=== PATIENT | female | born 1990 | race Caucasian/White ===

== ENCOUNTER 2016-12-14 00:46 | Emergency (ER) | payer BC, OTHER ==
[~2016-12-14] VITALS: Ht 157.5 cm; Wt 69.4 kg
[~2016-12-14 00:46] MED LIST: ALBU1AER9 INH; MDRDP21; MTR600X PO; PRENTAB26 PO
[2016-12-14 00:53] VITALS: BP 111/73; PULSE 87; TEMP 37; O2SAT 97; Ht 157.5 cm; Wt 69.4 kg
[2016-12-14] MEDS ORDERED: PNC/500 PO (01:28)
[2016-12-14] MEDS ORDERED: ALBU18002 PO (01:29)
[2016-12-14] MEDS ORDERED: NRN100 PO (01:29)
[2016-12-14] MEDS ORDERED: PRT/20 PO (01:30)
[2016-12-14] MEDS ORDERED: NAPROSYN HOME PACK 250 MG VIAL PO ONE (01:45)
[2016-12-14] MEDS ORDERED: NAPR250T2 PO (01:46)
--- NOTE | 2016-12-14 01:46 | EMERGENCY ROOM VISIT NOTE ---
History First contact with patient: 00:55 Chief Complaint: BACK PAIN Stated Complaint: BACK PAIN, CAN'T STAND UP STRAIGHT History of Present Illness The patient is a 26 year old female who presents to the Emergency Room with complaints of low back pain which started 2 days ago. The patient states that she lifted up her grandmother 2 days ago and developed pain in the low back. The pain is located across the low back. 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 She denies any numbness or weakness of her legs. She denies any bowel or bladder incontinence. She denies any fevers. She denies any history of back problems. She rates her discomfort a 10 /10. She has taken Prasanth and Excedrin without relief. Review of Systems A complete 10 point review of systems was reviewed with the patient with pertinent positives and negatives as per history of present illness. All else were negative. Past Medical/Surgical History Medical Problems: (1) Asthma (2) Cholecystectomy (3) CHOLELITH W CHOLECYS NEC (4) Pre-eclampsia in third trimester (5) Tonsillectomy (6) [place] Teeth Removal Social History Smoking Status: Former Smoker Alcohol Use: none Drug Use: none Marital Status: Occupation Status: employed Current/Historical Medications Scheduled Methylprednisolone (Methylprednisolone Dose P), UD Naproxen (Naprosyn), 250 MG PO BID Pantoprazole (Protonix), 20 MG PO DAILY Penicillin V Potassium (Penicillin V Potassium), 500 MG PO QID Scheduled PRN Albuterol Sulfate (Proair Respiclick), 2 PUFFS PO Q4 PRN for SOB/Wheezing Gabapentin (Gabapentin), 100 MG PO BID PRN for Muscle Spasms Physical Exam Vital Signs Date Time Temp Pulse Resp B/P (MAP) Pulse Ox O2 Delivery O2 Flow Rate FiO2 12/14/16 00:53 37.0 87 16 111/73 97 Room Air Physical Exam VITALS: Vitals are noted on the nurse's note and reviewed by myself. Vital signs stable. GENERAL: This is a 26-year-old female, in no acute distress, nondiaphoretic, well-developed well-nourished. HEART: Regular rate and rhythm without murmurs gallops or rubs. LUNGS: Clear to auscultation bilaterally without wheezes, rales or rhonchi. ABDOMEN: Soft, nontender to palpation. MUSCULOSKELETAL: There is vague tenderness across the low back. Full range of motion of bilateral lower extremities. Patellar reflexes 2+. Strength 5/5 in the lower extremities. NEURO: Patient was alert and oriented to person place and time. Normal sensation to light and sharp touch. Medical Decision & Procedures ER Provider Diagnostic Interpretation: LUMBAR SPINE X-RAYS: No acute fractures or subluxations identified. Medications Administered Medications (Trade) Dose Ordered Sig/Shelley Route Start Time Stop Time Status Last Admin Dose Admin Naproxen (Naproxen 250MG Home Pack) 1 homepack UD ONCE PO 12/14/16 01:45 12/14/16 01:46 DC 12/14/16 01:45 1 HOMEPACK Medical Decision Differential diagnosis includes cauda equina syndrome, cord compression, disc herniation, muscle spasm, lumbar strain, epidural abscess, malignancy, transverse myelitis, urinary tract infection, colitis, diverticulitis, kidney stone, among others. The patient is a 26-year-old female who presents today complaining of lumbar back pain. L-spine x-rays were performed and reviewed by myself and do not show any acute fractures or subluxations. There are no signs of cauda equina syndrome or cord compression on exam. Patient was given a prescription for Naprosyn and conservative measures were discussed. She was encouraged to follow -up with her primary care provider. Medication Reconcilliation Current Medication List: was personally reviewed by me Blood Pressure Screening Patient's blood pressure: Normal blood pressure Impression Primary Impression: Low back pain Departure Information Dispostion Home / Self-Care Condition GOOD Prescriptions Naproxen (Naprosyn) 250 Mg Tab 250 MG PO BID for 7 Days, #14 TAB Prov: Apoorva Lindquist .DORETHA 12/14/16 Referrals Michelle Tyson M.D. (PCP) Patient Instructions My [facility] Additional Instructions You have been treated in the Emergency Department for Back Pain. Naproxen as prescribed. For pain control, you can use the following [id number] medicines (if >12 yo): - Regular strength (325mg/tab) Tylenol (acetaminophen) 2 tabs every 4-6 hours as needed. Do not exceed 12 tablets in a 24 hour period. Avoid taking more than 4 grams (4000 mg) of Tylenol per day. This includes any other sources of acetaminophen you may take on a regular basis. If this is an acute injury, ice can be applied to the area of pain for the first 3 days to help decrease pain and inflammation. After the first 3 days, a heating pad can be used over the area for continued soothing relief. You should schedule a follow-up appointment in 2-3 days with your Primary Care Provider for further evaluation and treatment of your back pain. Return to the Emergency Department if your current symptoms worsen despite treatment course outlined above, or if you develop any of the following symptoms : intractable pain despite aforementioned treatment course, loss of control of your bowel or bladder, numbness or tingling in your groin, or development of a fever. Problem Qualifiers Primary Impression: Low back pain Chronicity: acute Back pain laterality: bilateral Sciatica presence: without sciatica Qualified Codes: M54.5 - Low back pain
--- NOTE | 2016-12-14 06:33 | DIAGNOSTIC IMAGING REPORT ---
L-SPINE MIN 4 VIEWS ROUTINE CLINICAL HISTORY: low back pain COMPARISON STUDY: No previous studies for comparison. FINDINGS: There is no pathologic bowel dilatation. There are surgical clips within the right upper quadrant consistent with a prior cholecystectomy. There are 5 lumbar type vertebral bodies present. No fractures or subluxations are visualized. No destructive lesions are evident. IMPRESSION: No fractures or subluxations identified. Electronically signed by: Crispin Li M.D. 12/14/2016 6:31 AM Dictated Date/Time: 12/14/2016 6:31 AM
== END 2016-12-14 01:50 | disposition home or self-care (01) ==
LOC: C.EDB 00:47 → C.EDA 01:50
DX: M54.5 Low back pain (principal); J45.909 Unspecified asthma, uncomplicated; Z90.49 Acquired absence of other specified parts of digestive tract; Z87.891 Personal history of nicotine dependence; Z79.899 Other long term (current) drug therapy

== ENCOUNTER 2017-05-31 17:56 | Emergency (ER) | payer OTHER ==
[~2017-05-31] VITALS: Ht 157.5 cm; Wt 65.6 kg
[~2017-05-31 17:56] MED LIST changes: +ALBU18002 PO; -ALBU1AER9 INH; -MTR600X PO; +NRN100 PO; +PNC/500 PO; -PRENTAB26 PO; +PRT/20 PO
[2017-05-31 18:38] VITALS: Ht 157.5 cm; Wt 65.6 kg
[2017-05-31] MEDS ORDERED: HYDROCODONE/ACETAMIN 5/325MG TAB PO STA (18:47)
[2017-05-31] MEDS ORDERED: AMOXICILLIN 250 MG CAP PO ONE (18:58)
--- NOTE | 2017-05-31 19:27 | EMERGENCY ROOM VISIT NOTE ---
ED Visit Note First contact with patient: 18:39 CHIEF COMPLAINT: Toothache HISTORY OF PRESENT ILLNESS: This 27-year-old female presents to ER with chief complaint of pain where she had a tooth extracted on Sunday. Patient states she has had increased pain in the socket since yesterday. The patient went to [facility] and was referred to the ER. The patient did not try to contact the dentist. The patient has been taken ibuprofen for pain. She initially had some hydrocodone but she ran out of the hydrocodone. The patient denies any fever. She states the pain radiates down into her jaw. The patient denies any facial pain or swelling. She denies any palpable lumps or any drainage from the site. REVIEW OF SYSTEMS: 6 system review was performed and was negative unless stated otherwise in history of present illness. PMH: The patient is healthy; asthma, cholecystectomy, tonsillectomy, adenoids removed, wisdom teeth removed, history of C. difficile SOCIAL HISTORY: Patient lives with her boyfriend and daughter. The patient denies any tobacco or alcohol use. PHYSICAL EXAM: Vital Signs: Reviewed reviewed Nurse's notes. GENERAL: 27-year- old female appears in no acute distress. MENTAL Status: Alert and oriented 3. MOUTH: The #30 tooth has been extracted. It appears that there is a blood clot within the socket. No surrounding erythema or edema noted. No palpable abscess. FACE: No facial swelling noted. NECK: Supple, no lymphadenopathy noted EMERGENCY COURSE: The patient was given amoxicillin 500 mg while in the emergency room. She was also given Olanta 5/325 mg 2 tablets p.o. for pain. The patient was reevaluated and was feeling better. The patient was given a Olanta home pack. The patient was discharged home in stable condition with her mother driving. DIAGNOSIS: Toothache DISCHARGE INSTRUCTIONS & TREATMENT: Ibuprofen 600 mg every 6 hours with food for pain. Take Olanta as needed for more severe pain. Take amoxicillin as prescribed. Call your surgeon tomorrow for an appointment as soon as possible for definitive care. Problem List Medical Problems: (1) Asthma Status: Chronic (2) Cholecystectomy Status: Resolved (3) CHOLELITH W CHOLECYS NEC Status: Resolved (4) Tonsillectomy Status: Resolved (5) [place] Teeth Removal Status: Resolved Current/Historical Medications Scheduled Methylprednisolone (Methylprednisolone Dose P), UD Pantoprazole (Protonix), 20 MG PO DAILY Penicillin V Potassium (Penicillin V Potassium), 500 MG PO QID Scheduled PRN Albuterol Sulfate (Proair Respiclick), 2 PUFFS PO Q4 PRN for SOB/Wheezing Gabapentin (Gabapentin), 100 MG PO BID PRN for Muscle Spasms Allergies Coded Allergies: BEE STING (Verified Allergy, Unknown, unknown, 12/14/16) Vital Signs Date Time Temp Pulse Resp B/P (MAP) Pulse Ox O2 Delivery O2 Flow Rate FiO2 05/31/17 18:38 90 20 138/93 98 Room Air 05/31/17 18:36 89 16 138/93 98 Room Air Medications Administered Medications (Trade) Dose Ordered Sig/Shelley Route Start Time Stop Time Status Last Admin Dose Admin Acetaminophen/ Hydrocodone Bitart ([place] 5/325 Tab) 2 tab NOW STAT PO 05/31/17 18:47 05/31/17 18:50 DC 05/31/17 19:00 2 TAB Amoxicillin (Amoxil Cap) 500 mg STK-MED ONCE PO 05/31/17 18:58 05/31/17 18:59 DC 05/31/17 19:00 500 MG Departure Information Referrals Michelle Tyson M.D. (PCP) Patient Instructions My [facility]
[2017-05-31] MEDS ORDERED: AMOX500C3 PO (19:28)
[2017-05-31] MEDS ORDERED: NORCO 5/325MG HOME PACK PO ONE (19:30)
[2017-05-31 19:36] VITALS: BP 131/81; PULSE 86; O2SAT 95
[2017-05-31] MEDS ORDERED: AMOXICILLIN 500 MG CAP PO SCH (21:00)
== END 2017-05-31 19:37 | disposition home or self-care (01) ==
LOC: C.EDB 17:57 → C.EDD 19:37
DX: K08.89 Other specified disorders of teeth and supporting structures (principal); Z79.899 Other long term (current) drug therapy; Z91.030 Bee allergy status

== ENCOUNTER 2017-07-08 12:40 | Emergency (ER) | payer OTHER ==
[~2017-07-08] VITALS: Ht 157.5 cm; Wt 60.0 kg
[2017-07-08 12:45] VITALS: Ht 157.5 cm; Wt 60.0 kg
[2017-07-08] MEDS ORDERED: VANC5CAP PO (13:10)
[2017-07-08] MEDS ORDERED: ESCI1TAB9 PO (13:10)
[2017-07-08] MEDS ORDERED: ONDA4TAB46 PO (13:10)
--- NOTE | 2017-07-08 13:23 | EMERGENCY ROOM VISIT NOTE ---
History Report prepared by Kim: Deep Martinez Under the Supervision of: Dr. Eddie Baeza D.O. First contact with patient: 12:51 Chief Complaint: FALL Stated Complaint: FALL, CAN'T WALK, TO BE SEEN W/DAUGHTER History of Present Illness The patient is a 27 year old female who presents to the Emergency Room with complaints of constant pain to her left knee and left elbow beginning this morning. The patient states she slipped and fell on her porch this morning. She reports it is difficult walk and movement increases her symptoms. The patient denies any other symptoms. Source of History: patient Onset: this morning Position: elbow (left), knee (left) Timing: constant Modifying Factors (Worsening): movement Note: Denies any other symptoms. Review of Systems See HPI for pertinent positives & negatives. A total of 10 systems reviewed and were otherwise negative. Past Medical & Surgical Medical Problems: (1) Asthma (2) Cholecystectomy (3) CHOLELITH W CHOLECYS NEC (4) Pre-eclampsia in third trimester (5) Tonsillectomy (6) [place] Teeth Removal Family History Diabetes mellitus Gallbladder disease Heart disease Hypertension Social History Smoking Status: Never Smoker Alcohol Use: none Drug Use: none Marital Status: Housing Status: lives with family Occupation Status: employed Current/Historical Medications Scheduled Escitalopram Oxalate (Lexapro), 10 MG PO DAILY Pantoprazole (Protonix), 20 MG PO DAILY Vancomycin Hcl (Vancomycin), 125 MG PO Q6H Scheduled PRN Albuterol Sulfate (Proair Respiclick), 2 PUFFS PO Q4 PRN for SOB/Wheezing Gabapentin (Gabapentin), 100 MG PO BID PRN for Muscle Spasms Ondansetron Hcl (Zofran), 4 MG PO Q6 PRN for Nausea Allergies Coded Allergies: Acetaminophen (Unverified Allergy, Intermediate, VOMITTING, 07/08/17) Codeine (Unverified Allergy, Intermediate, VOMITTING, 07/08/17) BEE STING (Verified Allergy, Unknown, unknown, 12/14/16) Metronidazole (Unverified Adverse Reaction, Severe, VOMITTING, 07/08/17) Tramadol (Unverified Adverse Reaction, Intermediate, VOMITTING, 07/08/17) Physical Exam Vital Signs Date Time Temp Pulse Resp B/P (MAP) Pulse Ox O2 Delivery O2 Flow Rate FiO2 07/08/17 12:45 36.9 95 18 133/88 98 Room Air Physical Exam CONSTITUTIONAL/VITAL SIGNS: Reviewed / noted above. GENERAL: Non-toxic in appearance. INTEGUMENTARY: Warm, dry, and [place]. HEAD: Normocephalic. EYES: without scleral icterus or trauma. ENT/OROPHARYNX: clear and moist. LYMPHADENOPATHY/NECK: Is supple without lymphadenopathy or meningismus. RESPIRATORY: Lungs clear and equal. CARDIOVASCULAR: Regular rate and rhythm. GI/ABDOMEN: Soft and nontender. No organomegaly or pulsatile mass. No rebound or guarding. Normal bowel sounds. EXTREMITIES: Warm and well perfused. Abrasion to the left knee and left elbow. BACK: No CVA tenderness. NEUROLOGICAL: Intact without focal deficits. PSYCHIATRIC: normal affect. MUSCULOSKELETAL: Normally developed with good muscle tone. Medical Decision & Procedures ED Course 1258: Previous medical records were reviewed. The patient was evaluated in room A04A. A complete history and physical examination was performed. I discussed the physical exam findings and treatment plan with the patient. She verbalized complete understanding of the treatment plan. She will be discharged home. Medical Decision Differential includes close head injury, intracranial bleed, facial trauma, cervical spine trauma, chest and thoracic trauma, abdominal and intra-abdominal trauma, spine neurologic trauma, extremity trauma. This is a 27-year-old female who presents to the ED with a chief complaint of a fall on her porch this morning as well as some abrasions to her left knee and left elbow. Her exam reveals an abrasion to the left knee area anteriorly and an abrasion to the left elbow. Full range of motion. Minimal discomfort. No obvious palpable or visible bony abnormalities. The patient was told the results. She is felt to be stable for discharge. Medication Reconcilliation Current Medication List: was personally reviewed by me Blood Pressure Screening Patient's blood pressure: Normal blood pressure Blood pressure disposition: Did not require urgent referral Impression Primary Impression: Abrasion Additional Impression: Fall Scribe Attestation The scribe's documentation has been prepared under my direction and personally reviewed by me in its entirety. I confirm that the note above accurately reflects all work, treatment, procedures, and medical decision making performed by me. Departure Information Dispostion Home / Self-Care Referrals Michelle Tyson M.D. (PCP) Forms HOME CARE DOCUMENTATION FORM, IMPORTANT VISIT INFORMATION Patient Instructions ED [place], My [facility] Additional Instructions Watch for signs of infection. Take Tylenol as needed for pain. Problem Qualifiers
[2017-07-08 13:35] VITALS: BP 133/88; PULSE 95; TEMP 36.9; O2SAT 98
== END 2017-07-08 13:15 | disposition home or self-care (01) ==
LOC: C.EDB 12:41 → C.EDA 13:15
DX: S80.212A Abrasion, left knee, initial encounter (principal); S50.312A Abrasion of left elbow, initial encounter; W01.0XXA Fall on same level from slipping, tripping and stumbling without subsequent striking against object, initial encounter; J45.909 Unspecified asthma, uncomplicated; Z88.6 Allergy status to analgesic agent; Z88.1 Allergy status to other antibiotic agents; Z91.030 Bee allergy status; Z83.3 Family history of diabetes mellitus; Z82.49 Family history of ischemic heart disease and other diseases of the circulatory system; Z83.79 Family history of other diseases of the digestive system

== ENCOUNTER 2020-06-17 07:17 | Inpatient (IN) ==
[2020-06-17] MEDS ORDERED: OXYTOCIN 30 UNITS/500 ML BAG IV PRN ×3 (09:34→23:30)
--- NOTE | 2020-06-17 09:56 | Obstetrical Progress Note ---
Date of Service June 17, 2020 Assessment & Plan Admission and Anticipated Discharge Date Admission Date: June 17, 2020 Subjective Admit Note 30 F P2022 at 4o.4 weeks admitted for post-dates . GBS is negative. Covid testing is negative. FHT Cat 1 without contractions. Cervix 2-3/50/-2/vertex/intact/anterior/firm. EFW 7.5 lbs. Will start Oxytocin for induction of labor. Results & Data ([facility]) Vital Signs (Past 12 Hours) Vital Signs Temp Pulse Resp BP 06/17/20 09:51 108 H 166/102 H 06/17/20 09:36 106 H 139/84 06/17/20 09:24 105 H 160/104 H 06/17/20 09:22 115 H 149/105 H 06/17/20 09:06 99 H 131/77 06/17/20 08:51 116 H 151/101 H 06/17/20 08:36 114 H 131/92 06/17/20 08:35 105 H 154/94 H 06/17/20 08:22 122 H 141/99 H 06/17/20 08:05 102 H 153/104 H 06/17/20 07:51 37.4 C 20 06/17/20 07:42 89 168/98 H
[2020-06-17] MEDS: LACTATED RINGER'S 1,000 ML IV PRN ×2 (10:01→17:35)
[2020-06-17 10:13] LABS: Hematocrit (blood only) 34.6 % (37-47); Hemoglobin 11.5 g/dL (12.0-16.0); Mean Corpuscular Hemoglobin 25.8 pg (25-34); Mean Corpuscular Hgb Conc 33.2 g/dL (32-36); Mean Corpuscular Volume 77.6 fL (80-100); Mean Platelet Volume 10.3 fL (7.4-10.4); Platelet Count 188 K/uL (130-400); RDW Coefficient of Variation 15.2 % (11.5-14.5); Red Blood Count 4.46 M/uL (4.2-5.4); White Blood Count 9.99 K/uL (4.8-10.8)
[2020-06-17] MEDS: LABETALOL HCL 100 MG TAB PO SCH ×2 (12:28→23:12)
[2020-06-17 12:48] LABS: Albumin Level 2.8 gm/dl (3.4-5.0); BUN Creatinine Ratio 13.2 (10-20); Bilirubin Direct 0.2 mg/dl (0-0.2); Calcium 8.7 mg/dl (8.5-10.1); Creatinine Clr Calc Pharmacy 140.7 ml/min; Est GFR (Non-African American) 123.4; Potassium 3.7 mmol/L (3.5-5.1)
[2020-06-17 12:51] LABS: Albumin Globulin Ratio 0.8 (0.9-2); Bilirubin,Total 0.4 mg/dl (0.2-1); Globulin 3.6 gm/dl (2.5-4.0); Total Protein 6.4 gm/dl (6.4-8.2)
[2020-06-17] MEDS ORDERED: ONDANSETRON INJ 2 MG/ML 2 ML VIAL IV PRN ×2 (14:17→19:05)
--- NOTE | 2020-06-17 17:53 | Obstetrical Progress Note ---
Date of Service June 17, 2020 Assessment & Plan Admission and Anticipated Discharge Date Admission Date: June 17, 2020 Physical Exam Genitourinary: Manual OB Exam: + cervical dilation 4 cm and 5 cm, + cervical effacement 70%, + station -1 and + amniotic fluid clear OB Exam Monitor Tracing: + external FHT monitor used, + external uterine monitor used, + categor y I and + normal FHT variability AROM with Amni-hook clear fluid Results [facility] Data [facility]) Vital Signs (Past 12 Hours) Vital Signs Temp Pulse Resp BP 06/17/20 17:29 81 169/105 H 06/17/20 16:10 86 142/98 H 06/17/20 15:15 88 141/93 H 06/17/20 14:26 37.0 C 20 06/17/20 14:08 86 140/94 06/17/20 12:53 92 H 157/84 H 06/17/20 12:06 93 H 153/101 H 06/17/20 11:10 91 H 145/93 H 06/17/20 10:37 99 H 136/84 06/17/20 10:21 37.0 C 88 20 138/86 06/17/20 10:07 96 H 137/78 06/17/20 10:03 102 H 162/114 H 06/17/20 09:51 108 H 166/102 H 06/17/20 09:36 106 H 139/84 06/17/20 09:24 105 H 160/104 H 06/17/20 09:22 115 H 149/105 H 06/17/20 09:06 99 H 131/77 06/17/20 08:51 116 H 151/101 H 06/17/20 08:36 114 H 131/92 06/17/20 08:35 105 H 154/94 H 06/17/20 08:22 122 H 141/99 H 06/17/20 08:05 102 H 153/104 H 06/17/20 07:51 37.4 C 20 06/17/20 07:42 89 168/98 H
[2020-06-17] MEDS ORDERED: SODIUM CHLORIDE 0.9% INJ 10 ML VIAL ONE (18:19)
[2020-06-17] MEDS ORDERED: fentaNYL citrate 100 MCG/2 ML VIAL ONE ×2 (18:19→19:12)
[2020-06-17] MEDS ORDERED: BUPIVACAINE 0.25% 30 ML VIAL ONE (18:19)
[2020-06-17] MEDS ORDERED: ePHEDrine sulfate 50 MG/ML AMP ONE (18:19)
[2020-06-17] MEDS ORDERED: fentaNYL 2MCG/ML ROPIVACAINE 1.25MG/ML 100 ML BAG EPI ONE (18:20)
--- NOTE | 2020-06-17 18:38 | Anesthesiology Consultation ---
Date of Service June 17, 2020 Assessment & Plan (1) Encounter for pre-operative examination: Chart Review Chart Review: Acceptable Risk for Labor Epidural History Height/Weight Height: 5 ft 2 in Weight: 87.09 kg Allergies Allergy/AdvReac Type Severity Reaction Status Date / Time butalbital [From Fioricet] Allergy Hives Verified 06/17/20 09:01 caffeine [From Fioricet] Allergy Hives Verified 06/17/20 09:01 codeine Allergy Hives Verified 06/17/20 09:01 metronidazole [From Flagyl] Allergy Vomiting Verified 06/17/20 08:38 oxycodone Allergy Hives Verified 06/17/20 09:01 tramadol Allergy Hives Verified 06/17/20 08:39 Medications Home Medications Medication Instructions Recorded Confirmed Last Taken aspirin [Baby Aspirin] 81 mg PO DAILY 06/17/20 06/17/20 06/17/20 07:00 prenat.vits,millie,vzr-xxvd-upucw 1 tab PO DAILY 06/17/20 06/17/20 06/16/20 20:00 [ Vitamin] Active Medications Generic Name Dose Route Start Last Admin Trade Name Freq PRN Reason Stop Dose Admin Lactated Ringer's 1,000 mls @ 125 mls/hr 06/17/20 09:34 06/17/20 18:15 Lr IV 06/19/20 09:33 999 mls/hr .Q8H PRN Infusion L&D Protocol Protocol Oxytocin 30 units in 500 mls @ 14 mls/hr 06/17/20 09:52 06/17/20 17:40 Pitocin IV 06/19/20 09:51 0.84 units/hr .Q24H PRN 14 mls/hr Labor Induction/Augmentation Titration Protocol 0.84 UNITS/HR Labetalol HCl 100 mg 06/17/20 12:30 06/17/20 12:28 Labetalol Hcl 100 Mg Tab PO 07/17/20 12:29 100 mg BID CRISTAL Administration Ondansetron HCl 4 mg 06/17/20 14:17 06/17/20 14:25 Ondansetron Inj 2 Mg/Ml 2 Ml Vial IV 07/17/20 14:16 4 mg Q4H PRN Administration Nausea Past Medical History Medical History ADHD Anxiety and depression Asthma Congenital heart anomaly mitral valve regurgitation Medical marijuana use PTSD (post-traumatic stress disorder) Past Surgical History Surgical History H/O wisdom tooth extraction History of laparoscopic cholecystectomy History of tonsillectomy and adenoidectomy Social History Smoking Status: Never smoker Hx Alcohol Use: No Hx Substance Use: Yes substance use type: marijuana Substance Use Type Other:: medical marijuana card Last Used Substance Other:: 05/20/20 Physical Exam Vital Signs Last Vital Signs Temp 37.0 C 06/17/20 18:29 Pulse 95 H 06/17/20 18:33 Resp 20 06/17/20 18:29 BP 189/117 H 06/17/20 18:28 Pulse Ox 98 06/17/20 18:33 Testing Laboratory Results 06/17/20 09:57 06/17/20 12:17
[2020-06-17] MEDS ORDERED: ePHEDrine sulfate 50 MG/ML AMP IV PRN (19:05)
[2020-06-17] MEDS ORDERED: NALOXONE HCL 1 MG in SODIUM CHLORIDE 0.9% 1000ML 1,000 ML IV PRN (19:05)
[2020-06-17] MEDS ORDERED: NALOXONE HCL 0.4 MG/1 ML VIAL/CARP IV PRN (19:05)
[2020-06-17] MEDS ORDERED: fentaNYL 2MCG/ML ROPIVACAINE 1.25MG/ML 100 ML BAG EPI PRN (19:05)
--- NOTE | 2020-06-17 20:05 | Obstetrical Progress Note ---
Date of Service June 17, 2020 Assessment & Plan Admission and Anticipated Discharge Date Admission Date: June 17, 2020 Physical Exam Genitourinary: Manual OB Exam: + cervical dilation 6 cm, + cervical effacement 100%, + station 0 and + amniotic fluid clear OB Exam Monitor Tracing: + external FHT monitor used, + external uterine monitor used, + category I and + normal FHT variability Results & Data ([facility]) Vital Signs (Past 12 Hours) Vital Signs Temp Pulse Resp BP Pulse Ox 06/17/20 19:58 90 97 06/17/20 19:53 83 152/97 H 97 06/17/20 19:48 87 97 06/17/20 19:43 87 97 06/17/20 19:39 85 140/90 06/17/20 19:38 78 97 06/17/20 19:33 79 97 06/17/20 19:30 18 06/17/20 19:28 84 97 06/17/20 19:23 84 98 06/17/20 19:22 80 150/94 H 06/17/20 19:20 18 06/17/20 19:18 92 H 97 06/17/20 19:16 94 H 165/99 H 06/17/20 19:15 18 06/17/20 19:13 87 98 06/17/20 19:11 88 158/94 H 06/17/20 19:10 36.8 C 18 06/17/20 19:09 89 144/95 H 06/17/20 19:08 89 98 06/17/20 19:06 86 156/104 H 06/17/20 19:05 97 H 18 154/103 H 06/17/20 19:03 86 163/102 H 98 06/17/20 19:01 93 H 168/92 H 06/17/20 18:58 90 97 06/17/20 18:57 98 H 164/93 H 06/17/20 18:53 113 H 98 06/17/20 18:52 112 H 190/124 H 06/17/20 18:51 114 H 192/118 H 06/17/20 18:48 100 H 98 06/17/20 18:43 100 H 96 06/17/20 18:38 90 97 06/17/20 18:33 95 H 98 06/17/20 18:29 37.0 C 20 06/17/20 18:28 94 H 189/117 H 98 06/17/20 18:10 88 142/103 H 06/17/20 17:29 81 169/105 H 06/17/20 16:10 86 142/98 H 06/17/20 15:15 88 141/93 H 06/17/20 14:26 37.0 C 20 06/17/20 14:08 86 140/94 06/17/20 12:53 92 H 157/84 H 06/17/20 12:06 93 H 153/101 H 06/17/20 11:10 91 H 145/93 H 06/17/20 10:37 99 H 136/84 06/17/20 10:21 37.0 C 88 20 138/86 06/17/20 10:07 96 H 137/78 06/17/20 10:03 102 H 162/114 H 06/17/20 09:51 108 H 166/102 H 06/17/20 09:36 106 H 139/84 06/17/20 09:24 105 H 160/104 H 06/17/20 09:22 115 H 149/105 H 06/17/20 09:06 99 H 131/77 06/17/20 08:51 116 H 151/101 H 06/17/20 08:36 114 H 131/92 06/17/20 08:35 105 H 154/94 H 06/17/20 08:22 122 H 141/99 H 06/17/20 08:05 102 H 153/104 H
[2020-06-17] MEDS ORDERED: ERYTHROMYCIN OP OINT 1 GM PKT ONE (21:48)
--- NOTE | 2020-06-17 22:19 | Delivery Summary ---
Vaginal Delivery Summary Date of Service June 17, 2020 Vaginal Delivery Summary Delivery Note live male NIKKI over intact perineum with delayed cord clamping and Apgars 8/9 weight pending. Cord blood obtained followed by spontaneous delivery of intact placenta. No tears. EBL 100 ml. Final sponge and instrument count are correct. Mom and baby stable.
[2020-06-17] MEDS ORDERED: DIPHTHERIA/TETANUS/PERTUSSIS 0.5 ML SYR/VIAL IM ONE (23:30)
[2020-06-17] MEDS ORDERED: ACETAMINOPHEN 325 MG TAB PO PRN (23:30)
[2020-06-17] MEDS ORDERED: HYDROCORTISONE ACETATE 25 MG SUPP PR PRN (23:30)
[2020-06-17] MEDS ORDERED: bisacodyL 10 MG SUPP PR PRN (23:30)
[2020-06-17] MEDS ORDERED: SUPERCREAM 0.870% 15 GM JAR EXT PRN (23:30)
[2020-06-17] MEDS ORDERED: BENZOCAINE 20% AER SPR 82.5 GM CAN EXT PRN (23:30)
[2020-06-18] MEDS: IBUPROFEN 600 MG TAB PO PRN ×4 (00:41→21:54)
[2020-06-18 06:33] LABS: Hematocrit (blood only) 30.7 % (37-47); Hemoglobin 10.3 g/dL (12.0-16.0); Mean Corpuscular Hemoglobin 25.9 pg (25-34); Mean Corpuscular Hgb Conc 33.6 g/dL (32-36); Mean Corpuscular Volume 77.3 fL (80-100); Platelet Count 199 K/uL (130-400); RDW Coefficient of Variation 15.5 % (11.5-14.5); RDW Standard Deviation 43.9 fL (36.4-46.3); Red Blood Count 3.97 M/uL (4.2-5.4); White Blood Count 14.24 K/uL (4.8-10.8)
--- NOTE | 2020-06-18 07:27 | Anesthesia Procedure Note ---
Date of Service June 18, 2020 Anesthesia Post Epidural Note Vital Signs Vital Signs: Temp Pulse Resp BP Pulse Ox 37.0 C 102 H 18 147/105 H 95 06/18/20 03:45 06/18/20 03:45 06/18/20 03:45 06/18/20 03:45 06/17/20 22:48 Notes Mental Status: alert / awake / arousable Nausea / Vomiting: adequately controlled Pain: adequately controlled Airway Patency, RR, SpO2: stable & adequate BP & HR: stable & adequate Hydration State: stable & adequate Neuraxial Anesthesia: was administered and sensory block is resolving Anesthetic Complications: no major complications apparent and Pt Satisfied with anesthetic care Epidural: Removed without complications and With tip intact
[2020-06-18] MEDS: PRENATAL VITAMIN 1 TAB PO SCH (08:25)
[2020-06-18] MEDS: DOCUSATE SODIUM 100 MG CAP PO SCH ×2 (08:25→20:36)
[2020-06-18] MEDS: LABETALOL HCL 100 MG TAB PO SCH ×2 (08:25→20:35)
[2020-06-18] MEDS ORDERED: NON-FORMULARY MEDICATION (Prenat.Vits,Cal,Min-Iron-Folic Tablet) PO SCH (09:00)
[2020-06-18] MEDS ORDERED: LIDOCAINE HCL 1% 20 ML VIAL ONE (09:17)
[2020-06-18] MEDS ORDERED: miSOPROStoL 200 MCG TAB ONE ×2 (09:30→17:27)
[2020-06-18] MEDS ORDERED: miSOPROStoL 200 MCG TAB PR ONE ×2 (09:36→18:00)
--- NOTE | 2020-06-18 09:36 | Progress Note ---
Date of Service June 18, 2020 Assessment & Plan Admission and Anticipated Discharge Date Admission Date: June 17, 2020 Subjective Pt is s/p VD Has moderate bleeding HTN on labetelol Pelvic exam No laceration in vagina POC from cervix removed Cytotec 600mcg given rectally will start Pitocin pelvic sono ordered Results & Data ([facility]) Vital Signs (Past 12 Hours) Vital Signs Temp Pulse Pulse Pulse Resp BP BP 06/18/20 08:32 90 142/99 H 06/18/20 07:16 36.7 C 92 H 20 144/100 H 06/18/20 03:45 37.0 C 102 H 18 147/105 H 06/18/20 01:10 37.3 C 101 H 18 130/85 06/18/20 00:25 105 H 18 160/95 H 06/18/20 00:10 104 H 168/93 H 06/17/20 23:55 108 H 18 150/82 H 06/17/20 23:40 108 H 164/87 H 06/17/20 23:25 110 H 177/99 H 06/17/20 23:07 104 H 18 171/100 H 06/17/20 22:53 99 H 18 165/81 H 06/17/20 22:48 102 H 06/17/20 22:43 101 H 06/17/20 22:42 104 H 06/17/20 22:38 107 H 18 169/96 H 06/17/20 22:33 108 H 06/17/20 22:28 109 H 06/17/20 22:23 110 H 06/17/20 22:21 107 H 18 159/93 H 06/17/20 22:18 104 H 06/17/20 22:13 102 H 06/17/20 22:08 109 H 132/78 06/17/20 22:03 129 H 18 06/17/20 21:58 137 H 06/17/20 21:53 104 H 149/97 H 06/17/20 21:48 104 H 06/17/20 21:43 98 H 06/17/20 21:39 100 H 136/84 06/17/20 21:38 101 H Pulse Ox 06/18/20 08:32 06/18/20 07:16 97 06/18/20 03:45 06/18/20 01:10 06/18/20 00:25 06/18/20 00:10 06/17/20 23:55 06/17/20 23:40 06/17/20 23:25 06/17/20 23:07 06/17/20 22:53 06/17/20 22:48 95 06/17/20 22:43 95 06/17/20 22:42 94 06/17/20 22:38 95 06/17/20 22:33 95 06/17/20 22:28 95 06/17/20 22:23 96 06/17/20 22:21 06/17/20 22:18 95 06/17/20 22:13 97 06/17/20 22:08 96 06/17/20 22:03 95 06/17/20 21:58 97 06/17/20 21:53 97 06/17/20 21:48 97 06/17/20 21:43 95 06/17/20 21:39 94 06/17/20 21:38 97
[2020-06-18] MEDS ORDERED: OXYTOCIN 20 UNITS in LACTATED RINGER'S 1,000 ML IV SCH ×2 (09:45→19:30)
[2020-06-18] MEDS ORDERED: ACETAMINOPHEN W/CODEINE #3 1 TAB PO PRN (09:46)
--- NOTE | 2020-06-18 11:34 | History & Physical Bridge Note ---
Date of Service June 18, 2020 History & Physical Bridge Note I have examined the patient, reviewed the History & Physical and in the interval since the performance of the History & Physical I have noted the following changes of clinical significance: no changes noted
--- NOTE | 2020-06-18 11:35 | Progress Note ---
Date of Service June 18, 2020 Assessment & Plan Admission and Anticipated Discharge Date Admission Date: June 17, 2020 Subjective s/p pelvic sono showed retained placenta pt is scheduled for D&E pt consented risk and benefits of surgery discussed Results & Data ([facility]) Vital Signs (Past 12 Hours) Vital Signs Temp Pulse Pulse Pulse Resp BP BP 06/18/20 08:32 90 142/99 H 06/18/20 07:16 36.7 C 92 H 20 144/100 H 06/18/20 03:45 37.0 C 102 H 18 147/105 H 06/18/20 01:10 37.3 C 101 H 18 130/85 06/18/20 00:25 105 H 18 160/95 H 06/18/20 00:10 104 H 168/93 H 06/17/20 23:55 108 H 18 150/82 H 06/17/20 23:40 108 H 164/87 H Pulse Ox 06/18/20 08:32 06/18/20 07:16 97 06/18/20 03:45 06/18/20 01:10 06/18/20 00:25 06/18/20 00:10 06/17/20 23:55 06/17/20 23:40
--- NOTE | 2020-06-18 11:46 | Ultrasound Report ---
US pelvic complete HISTORY: 30 years-old Female VD less than 24 hrs ago. please evaluate for POC acute vaginal bleeding with possible retained products of conception COMPARISON: None TECHNIQUE: Multiple real-time sonographic images of the deep pelvic structures were obtained transabd ominally assessing grayscale appearance and color flow FINDINGS: Enlarged heterogeneous post gravid appearance of the uterus measures 23 x 11 x 12 cm. Endometrium is thickened and heterogeneous measuring up to 4.6 cm. Within the lower uterine segment hypoechoic heter ogeneous material measures up to 9 x 4 x 6 cm without color flow. Nonvisualization of the ovaries. No significant free pelvic fluid. IMPRESSION: 1. Enlarged heterogeneous post gravid appearance of the uterus with suggested blood products within t he lower uterine segment. 2. No definite sonographic evidence of retained products of conception. 3. Nonvisualization of the ovaries. ACT 112: Negative or not required by law. The above report was generated using voice recognition software. It may contain grammatical, syntax o r spelling errors. Electronically signed by: Gabriel Lockwood M.D. 06/18/2020 11:45 AM
[2020-06-18] MEDS ORDERED: cefOXitin 2,000 MG in DEXTROSE 5% 50 ML IV ONE (12:30)
[2020-06-18] MEDS ORDERED: CITRIC ACID/SODIUM CITRATE 15 ML UDC PO ONE (12:30)
[2020-06-18] MEDS ORDERED: LACTATED RINGER'S 1,000 ML IV SCH (12:44)
[2020-06-18] MEDS ORDERED: METHYLERGONOVINE MALEATE 0.2 MG/ML AMP ONE (17:27)
[2020-06-18] MEDS ORDERED: DEXAMETHASONE SOD INJ 4 MG/ML VIAL ONE (17:40)
[2020-06-18] MEDS ORDERED: PROPOFOL IV EMULSION 10 MG/ML 20 ML VIAL IV ONE (17:40)
[2020-06-18] MEDS ORDERED: fentaNYL citrate 100 MCG/2 ML VIAL ONE (17:40)
[2020-06-18] MEDS ORDERED: LIDOCAINE HCL 2% 2 ML VIAL/AMP(20MG/ML) INFIL ONE (17:40)
[2020-06-18] MEDS ORDERED: ONDANSETRON INJ 2 MG/ML 2 ML VIAL ONE (17:40)
[2020-06-18] MEDS ORDERED: MIDAZOLAM HCL 1 MG/ML 2ML VIAL ONE (17:40)
[2020-06-18] MEDS ORDERED: SUCCINYLCHOLINE 100MG/5ML SYR IV ONE (17:47)
[2020-06-18] MEDS ORDERED: LARYING-O-JET KIT (LTA) ONE (17:47)
[2020-06-18] MEDS ORDERED: SCOPOLAMINE 1 MG TDSY TD ONE (17:51)
--- NOTE | 2020-06-18 18:15 | History and Physical Report ---
DATE OF ADMISSION: 06/17/2020 HISTORY OF PRESENT ILLNESS: The patient is a 30-year-old G3, who had spontaneous vaginal delivery on 06/17/2020. The patient continued to have bleeding and this morning an ultrasound done showed she had retained products of conception. Decision is therefore made to take the patient to the operating room and perform a D and E. PAST MEDICAL HISTORY: The patient has a history of anxiety, asthma and PTSD. PAST SURGICAL HISTORY: The patient has a history of dental procedures and cholecystectomy as well as tonsillectomy. SOCIAL HISTORY: The patient denies drug or alcohol use. FAMILY HISTORY: Noncontributory. PHYSICAL EXAMINATION: GENERAL: Well-developed, well-nourished white female in no acute distress. HEART: S1, S2, regular rhythm and rate. LUNGS: Clear to auscultation bilaterally. ABDOMEN: Slightly tender, nondistended. PELVIC: The patient has moderate bleeding. VITAL SIGNS: Blood pressure is 149/101, pulse is 97, temperature 36.6. ASSESSMENT AND PLAN: Status post vaginal delivery, retained products of conception. The patient has agreed to undergo dilation and evacuation with suction. Consent is signed. Risks and benefits of surgery are discussed.
[2020-06-18] MEDS ORDERED: OXYTOCIN 10 UNITS/ML VIAL ONE (18:16)
[2020-06-18] MEDS ORDERED: ceFAZolin 2000MG 2,000 MG/15 ML SYR IV ONE (18:24)
[2020-06-18] MEDS ORDERED: ATROPINE SULFATE 0.1 MG/ML 10ML SYR IV PRN (18:38)
[2020-06-18] MEDS ORDERED: ePHEDrine sulfate 50 MG/ML AMP IV PRN (18:38)
[2020-06-18] MEDS ORDERED: fentaNYL citrate 100 MCG/2 ML VIAL IV PRN (18:38)
[2020-06-18] MEDS ORDERED: ONDANSETRON INJ 2 MG/ML 2 ML VIAL IV PRN (18:38)
--- NOTE | 2020-06-18 18:38 | Anesthesiology Consultation ---
Date of Service June 18, 2020 Assessment & Plan (1) Encounter for pre-operative examination: Chart Review Chart Review: Acceptable Risk for Surgery and Patient NOT seen in Pre Admission Testing Consults Requested none ASA ASA3 Proposed Anesthesia Anesthesia Type: General Risk / Benefits Reviewed With: PT / POA / Parent / Guardian, Accepts Plan and In formed Consent Obtained History Surgery Operation Date: 06/18/20 07:00 Proposed Procedures p Dilation and Evacuation with US Guidance - Cedric Hernandez MD Height/Weight Height: 5 ft 2 in Weight: 87.09 kg Allergies Allergy/AdvReac Type Severity Reaction Status Date / Time butalbital [From Fioricet] Allergy Hives Verified 06/17/20 09:01 caffeine [From Fioricet] Allergy Hives Verified 06/17/20 09:01 codeine Allergy Hives Verified 06/17/20 09:01 metronidazole [From Flagyl] Allergy Vomiting Verified 06/17/20 08:38 oxycodone Allergy Hives Verified 06/17/20 09:01 tramadol Allergy Hives Verified 06/17/20 08:39 Medications Home Medications Medication Instructions Recorded Confirmed Last Taken aspirin [Baby Aspirin] 81 mg PO DAILY 06/17/20 06/17/20 06/17/20 07:00 prenat.vits,millie,tfe-xukw-unauf 1 tab PO DAILY 06/17/20 06/17/20 06/16/20 20:00 [ Vitamin] Active Medications Generic Name Dose Route Start Last Admin Trade Name Freq PRN Reason Stop Dose Admin Acetaminophen 650 mg 06/17/20 23:30 06/18/20 09:56 Acetaminophen 325 Mg Tab PO 07/17/20 23:29 650 mg Q6H PRN Administration Pain/PEREZ/Fever Benzocaine 1 appln 06/17/20 23:30 06/18/20 01:15 Benzocaine 20% Aer Spr 82.5 Gm Can EXT 07/17/20 23:29 82.5 appln PRN PRN Administration Perineal Discomfort Docusate Sodium 100 mg 06/18/20 08:00 06/18/20 08:25 Docusate Sodium 100 Mg Cap PO 07/18/20 07:59 100 mg DAILY@, CRISTAL Administration Lactated Ringer's 1,000 mls @ 125 mls/hr 06/17/20 09:34 06/17/20 22:08 Lr IV 06/19/20 09:33 Infused .Q8H PRN Infusion L&D Protocol Protocol Oxytocin 30 units in 500 mls @ 999 mls/hr 06/17/20 09:52 06/17/20 22:45 Pitocin IV 06/19/20 09:51 Infused .Q31M PRN Titration Labor Induction/Augmentation Protocol 59.94 UNITS/HR Oxytocin 20 units/ Lactated 1,002 mls @ 125 mls/hr 06/18/20 09:45 06/18/20 10:18 Ringer's IV 07/18/20 09:44 125 mls/hr .Q8H1M CRISTAL Administration Ibuprofen 600 mg 06/17/20 23:30 06/18/20 09:56 Ibuprofen 600 Mg Tab PO 07/17/20 23:29 600 mg Q4H PRN Administration Pain/PEREZ/Cramping/Fever Labetalol HCl 100 mg 06/17/20 12:30 06/18/20 08:25 Labetalol Hcl 100 Mg Tab PO 07/17/20 12:29 100 mg BID CRISTAL Administration Prenat Multivit/Lamp Tester And Inspector/Iron/Folic Ac 1 tab 06/18/20 08:00 06/18/20 08:25 Vitamin 1 Tab PO 07/18/20 07:59 1 tab DAILY@08 CRISTAL Administration NPO Date Last Intake of Fluids: 06/18/20 Time Last Intake of Fluids: 09:30 Last Intake of Fluids Comment: Sips Date Last Intake of Solids: 06/18/20 Time Last Intake of Solids: 08:30 Past Medical History Medical History ADHD Anxiety and depression Asthma Congenital heart anomaly mitral valve regurgitation Medical marijuana use PTSD (post-traumatic stress disorder) Exercise / Class Metabolic Activity II 4-5 Yardwork/Stairs/Walk up hill Past Surgical History Surgical History H/O wisdom tooth extraction History of laparoscopic cholecystectomy History of tonsillectomy and adenoidectomy Past Anesthesia History No Hx of Anesthesia Complications and No Family Hx of Anesthesia Complications History of PONV No Hx of PONV and No Hx of Motion Sickness Social History Smoking Status: Never smoker Hx Alcohol Use: No Hx Substance Use: Yes substance use type: marijuana Substance Use Type Other:: medical marijuana card Last Used Substance Other:: 05/20/20 Physical Exam Vital Signs Last Vital Signs Temp 36.6 C 06/18/20 16:53 Pulse 97 H 06/18/20 16:53 Resp 18 06/18/20 16:53 BP 149/101 H 06/18/20 16:53 Pulse Ox 97 06/18/20 16:53 ENMT Mouth: no dentition abnormality Thyromental Distance: > or= 3.5 Finger Breadths Mallampati Class: II Neck normal visual inspection Respiratory normal respiratory effort Auscultation: lungs clear to auscultation bilaterally Cardiovascular Rate/Rhythm: regular rate and regular rhythm Psychiatric Orientation: alert Testing Laboratory Results 06/18/20 06:15 06/17/20 12:17
--- NOTE | 2020-06-18 19:08 | Anesthesiology Progress Note ---
Date of Service June 18, 2020 Anesthesia Post Procedure Vital Signs Vital Signs: Temp Pulse Pulse Pulse Pulse Resp BP 06/18/20 16:53 36.6 C 97 H 18 06/18/20 16:07 36.8 C 92 H 18 06/18/20 11:19 37.3 C 95 H 18 06/18/20 08:32 90 06/18/20 07:16 36.7 C 92 H 20 06/18/20 03:45 37.0 C 102 H 18 06/18/20 01:10 37.3 C 101 H 18 06/18/20 00:25 105 H 18 160/95 H 06/18/20 00:10 104 H 168/93 H 06/17/20 23:55 108 H 18 150/82 H 06/17/20 23:40 108 H 164/87 H 06/17/20 23:25 110 H 177/99 H 06/17/20 23:07 104 H 18 171/100 H 06/17/20 22:53 99 H 18 165/81 H 06/17/20 22:48 102 H 06/17/20 22:43 101 H 06/17/20 22:42 104 H 06/17/20 22:38 107 H 18 169/96 H 06/17/20 22:33 108 H 06/17/20 22:28 109 H 06/17/20 22:23 110 H 06/17/20 22:21 107 H 18 159/93 H 06/17/20 22:18 104 H 06/17/20 22:13 102 H 06/17/20 22:08 109 H 132/78 06/17/20 22:03 129 H 18 06/17/20 21:58 137 H 06/17/20 21:53 104 H 149/97 H 06/17/20 21:48 104 H 06/17/20 21:43 98 H 06/17/20 21:39 100 H 136/84 06/17/20 21:38 101 H 06/17/20 21:34 96 H 06/17/20 21:33 98 H 06/17/20 21:30 18 06/17/20 21:28 100 H 06/17/20 21:23 97 H 147/92 H 06/17/20 21:18 101 H 06/17/20 21:13 99 H 06/17/20 21:10 95 H 03/04/21 21:08 37.0 C 92 H 139/91 06/17/20 21:03 102 H 06/17/20 21:00 18 06/17/20 20:58 100 H 06/17/20 20:55 92 H 06/17/20 20:53 93 H 119/84 06/17/20 20:49 95 H 06/17/20 20:48 95 H 06/17/20 20:44 95 H 06/17/20 20:43 97 H 06/17/20 20:38 88 135/83 06/17/20 20:33 99 H 06/17/20 20:30 18 06/17/20 20:28 94 H 06/17/20 20:25 88 06/17/20 20:23 92 H 139/92 06/17/20 20:18 99 H 06/17/20 20:13 94 H 06/17/20 20:09 81 138/88 06/17/20 20:08 83 06/17/20 20:03 92 H 06/17/20 20:00 18 06/17/20 19:58 90 06/17/20 19:53 83 152/97 H 06/17/20 19:48 87 06/17/20 19:43 87 06/17/20 19:39 85 140/90 06/17/20 19:38 78 06/17/20 19:33 79 06/17/20 19:30 18 06/17/20 19:28 84 06/17/20 19:23 84 06/17/20 19:22 80 150/94 H 06/17/20 19:20 18 06/17/20 19:18 92 H 06/17/20 19:16 94 H 165/99 H 06/17/20 19:15 18 06/17/20 19:13 87 06/17/20 19:11 88 158/94 H 06/17/20 19:10 36.8 C 18 06/17/20 19:09 89 144/95 H BP Pulse Ox 06/18/20 16:53 149/101 H 97 06/18/20 16:07 143/91 H 98 06/18/20 11:19 148/108 H 97 06/18/20 08:32 142/99 H 06/18/20 07:16 144/100 H 97 06/18/20 03:45 147/105 H 06/18/20 01:10 130/85 06/18/20 00:25 06/18/20 00:10 06/17/20 23:55 06/17/20 23:40 06/17/20 23:25 06/17/20 23:07 06/17/20 22:53 06/17/20 22:48 95 06/17/20 22:43 95 06/17/20 22:42 94 06/17/20 22:38 95 06/17/20 22:33 95 06/17/20 22:28 95 06/17/20 22:23 96 06/17/20 22:21 06/17/20 22:18 95 06/17/20 22:13 97 06/17/20 22:08 96 06/17/20 22:03 95 06/17/20 21:58 97 06/17/20 21:53 97 06/17/20 21:48 97 06/17/20 21:43 95 06/17/20 21:39 94 06/17/20 21:38 97 06/17/20 21:34 94 06/17/20 21:33 94 06/17/20 21:30 06/17/20 21:28 97 06/17/20 21:23 95 06/17/20 21:18 96 06/17/20 21:13 96 06/17/20 21:10 94 06/17/20 21:08 95 06/17/20 21:03 97 06/17/20 21:00 06/17/20 20:58 95 06/17/20 20:55 94 06/17/20 20:53 94 06/17/20 20:49 93 06/17/20 20:48 94 06/17/20 20:44 94 06/17/20 20:43 96 06/17/20 20:38 96 06/17/20 20:33 95 06/17/20 20:30 06/17/20 20:28 96 06/17/20 20:25 94 06/17/20 20:23 96 06/17/20 20:18 97 06/17/20 20:13 98 06/17/20 20:09 06/17/20 20:08 95 06/17/20 20:03 97 06/17/20 20:00 06/17/20 19:58 97 06/17/20 19:53 97 06/17/20 19:48 97 06/17/20 19:43 97 06/17/20 19:39 06/17/20 19:38 97 06/17/20 19:33 97 06/17/20 19:30 06/17/20 19:28 97 06/17/20 19:23 98 06/17/20 19:22 06/17/20 19:20 06/17/20 19:18 97 06/17/20 19:16 06/17/20 19:15 06/17/20 19:13 98 06/17/20 19:11 06/17/20 19:10 06/17/20 19:09 Transfer of Care Handoff Completed per policy Notes Mental Status: alert / awake / arousable Patient Amnestic to Procedure: Yes Nausea / Vomiting: adequately controlled Pain: adequately controlled Airway Patency, RR, SpO2: stable & adequate BP & HR: stable & adequate Hydration State: stable & adequate Anesthetic Complications: no major complications apparent
[2020-06-18] MEDS ORDERED: KETOROLAC 30 MG/ML VIAL IV PRN (19:16)
[2020-06-18] MEDS ORDERED: IBUPROFEN 600 MG TAB PO PRN (19:16)
--- NOTE | 2020-06-18 19:21 | Post Operative Brief Note ---
Immediate Post Op Note v1 Date of Surgery June 18, 2020 Pre & Post Diagnosis Operation Date: 06/18/20 07:00 Pre-Op Diagnosis: Retained products of conception Post-Op Diagnosis: Retained products of conception I identified the patient and participated in the time-out.: Yes Procedure Operation Date: 06/18/20 07:00 Actual Procedures p Dilation and evacuation with suction under ultrasound guidance - Cedric Hernandez MD Surgeon Cedric Hernandez MD Motor Room Controller none Estimated Blood Loss 100 Findings Consistent with Post-Op Diagnosis Drains Chu Catheter
[2020-06-18] MEDS ORDERED: bisacodyL 5 MG TABEC PO SCH (20:00)
--- NOTE | 2020-06-18 20:10 | Ultrasound Report ---
INTRAOPERATIVE ULTRASOUND CLINICAL HISTORY: Ultrasound guidance for retained products of conception. COMPARISON STUDY: Pelvic ultrasound dated 06/18/2020. FINDINGS: The ssis etl developer provided intraoperative assistance for Dr. Hernandez in performing a dilatation and excision procedure. 5 spot images are presented. Initial images show complex retained material w ithin the endometrial canal. On the final 2 images this has been removed. No residual tissue is clear ly identified. The post gravid uterus is enlarged and heterogeneous. IMPRESSION: Intraoperative ultrasound images as above. Electronically signed by: Daryl Pacheco M.D. 06/18/2020 8:08 PM
--- NOTE | 2020-06-18 21:05 | Operative Report (OR) ---
DATE OF OPERATION: 06/18/2020 INDICATION FOR PROCEDURE: This is a 30-year-old status post vaginal delivery on 06/17/2020. The patient was experiencing moderate amount of bleeding since delivery. This morning, pelvic exam was done and retained products of conception was suspected. Ultrasound was performed which confirmed that. This evening, the patient underwent a dilation and evacuation of uterus under ultrasound guidance. PREOPERATIVE DIAGNOSES: 1. Status post vaginal delivery. 2. Retained products of conception. POSTOPERATIVE DIAGNOSES: 1. Status post vaginal delivery. 2. Retained products of conception. PROCEDURE: 1. Examination under anesthesia. 2. Dilation and evacuation of uterus under ultrasound guidance. SURGEON: Cedric Hernandez MD MODERATE NEEDS TEACHER: None. ESTIMATED BLOOD LOSS: 100 mL. URINE OUTPUT: 200 mL clear urine at the beginning of the procedure. INTRAVENOUS FLUIDS: 1700 mL. FINDINGS: Moderate amount of products found in the uterus. Entire procedure performed under ultrasound guidance. COMPLICATIONS: None. PATHOLOGY: Products of conception. DISPOSITION: Stable to recovery room. DESCRIPTION OF PROCEDURE: The patient was taken to the operating room where she was prepped and draped in normal sterile fashion in dorsal lithotomy position. Time out was called. Bladder was catheterized and 200 mL of urine was obtained. Two weighted speculum was placed in the vagina. Single tooth tenaculum was used to grab the cervix. Cervix was dilated in series. A size 14 suction attached to a suction device placed in the uterus. This was all done under ultrasound guidance. Suction was performed several times until no more products could be seen in the uterus on ultrasound. Suction was removed. A banjo curette was introduced into the uterine cavity once again under ultrasound guidance. Suction of all 4 quadrants performed until a relatively gritty texture was obtained. Once again, ultrasound confirms no more products are seen in the uterus. There was good hemostasis. All instruments were removed from the uterus including suction and sharp curette. The patient was given Pitocin, Methergine and Cytotec. There was good hemostasis. All instruments were removed from the uterus and vagina and accounted for x2 including suction device. The patient was sent to recovery in stable condition. I attest to the content of the Intraoperative Record and any orders documented therein. Any exception s are noted below.
[2020-06-19 06:40] LABS: Hematocrit (blood only) 29.2 % (37-47); Hemoglobin 9.7 g/dL (12.0-16.0)
[2020-06-19] MEDS: LABETALOL HCL 100 MG TAB PO SCH (07:57)
[2020-06-19] MEDS: DOCUSATE SODIUM 100 MG CAP PO SCH (07:57)
[2020-06-19] MEDS: PRENATAL VITAMIN 1 TAB PO SCH (07:57)
--- NOTE | 2020-06-19 08:27 | Obstetrical Progress Note ---
Date of Service June 19, 2020 Assessment & Plan (1) Normal course: Pt doing well s/p VD day #2 D&E for retained placenta (2) Post-operative state: pt doing well hemoglobin is 9.7 pt feeling much better d/c home on iron Subjective Ambulation: ambulating normally Voiding: no voiding problems Passing Gas:: Yes Diet Tolerance:: regular diet Lochia:: Small Feeding Type:: breast feeding Review of Systems All systems reviewed & are unremarkable except as noted in HPI & below Physical Exam Constitutional WD/WN, vitals as above well developed and well nourished Eyes PERRL, conjunctivae normal, anicteric sclerae Neck trachea midline, no thyromegaly Respiratory normal respiratory effort, lungs clear to auscultation Auscultation: no crackles, no rales and no wheezes Cardiovascular RRR, no murmur, no edema Gastrointestinal (Abdomen) normal bowel sounds, soft, nontender, no hepatosplenomegaly Uterus is below umbilicus Musculoskeletal no cyanosis or clubbing, extremities motor strength 5/5 Skin no rashes, warm and dry Neurologic patellar DTR's 2+ bilat, sensation intact Psychiatric A+Ox3, euthymic affect Genitourinary normal external appearance Results & Data ([facility]) Vital Signs (Past 12 Hours) Vital Signs Temp Pulse Pulse Resp BP Pulse Ox 06/19/20 07:36 36.8 C 97 H 20 134/82 06/19/20 03:30 36.8 C 89 18 131/93 96 06/18/20 23:20 36.8 C 100 H 20 129/84 98 06/18/20 22:10 36.8 C 104 H 20 133/88 96 06/18/20 21:10 37.3 C 97 H 20 150/106 H 97 06/18/20 20:40 36.7 C 93 H 18 141/102 H 97
[2020-06-19] MEDS ORDERED: FERROUS SULFATE 325 MG TAB PO SCH (08:30)
--- NOTE | 2020-07-05 23:06 | Discharge Summary (DS) ---
HISTORY OF PRESENT ILLNESS: This is a 30-year-old G4, P2, due date 06/13/2020 making her 40 weeks and 5 days on 06/17/2020. The patient presented to labor and delivery with ruptured membranes and went on to deliver a live infant on 06/17/2020. Details of the delivery is in the obstetric and pediatric notes respectively. The patient did well postop; however, on 06/19/2020 she continued to have significant bleeding. She underwent D and E for removal of retained placenta. Details of surgery is in the surgical note as well. She was discharged home in stable condition on 06/19/2020. PAST MEDICAL HISTORY: History of attention deficit hyperactivity disorder, history of asthma, migraines and posttraumatic stress disorder. PAST SURGICAL HISTORY: The patient had dental surgery in the past, cholecystectomy and laparoscopy as well as adenoids and tonsils removed. SOCIAL HISTORY: The patient denies tobacco, drug or alcohol use. FAMILY HISTORY: Noncontributory. ALLERGIES: THE PATIENT IS ALLERGIC TO CODEINE, METRONIDAZOLE. REVIEW OF SYSTEMS: Negative. VITAL SIGNS: On 06/19/2020 is as follows: Blood pressure 134/82, pulse is 97, temperature 36.8. REVIEW OF SYSTEMS: Negative except as dictated in the HPI. LABORATORY DATA: At time of discharge, hemoglobin was 9.7, hematocrit was 29.2. PHYSICAL EXAMINATION: HEART: S1, S2, regular rhythm and rate. LUNGS: Clear to auscultation bilaterally. ABDOMEN: Nontender, nondistended. Uterus firm. EXTREMITIES: No cyanosis, clubbing or edema. CONDITION ON DISCHARGE: Stable. OPERATION: Vaginal delivery, hemorrhage, D and E under ultrasound guidance. PLAN ON DISCHARGE: The patient is discharged home with instructions regarding activity, diet and followup appointment.
== END 2020-06-19 15:45 | disposition home or self-care (01) | DRG 797 ==
LOC: 4S1 07:17 → MERGE 07:17 → 4S2 06-18 01:13

== ENCOUNTER 2022-03-24 12:25 | Inpatient (IN) ==
[2022-03-24] MEDS ORDERED: OXYTOCIN 30 UNITS/500 ML BAG IV PRN ×2 (13:07→21:27)
[2022-03-24] MEDS ORDERED: LIDOCAINE 1% LOCAL 20 ML VIAL INFIL PRN (13:07)
--- NOTE | 2022-03-24 13:14 | History & Physical Report ---
Date of Service March 24, 2022 Assessment & Plan (1) 39 weeks gestation of : Plan: Blood pressure in clinic earlier today was 142/94, when she presented to labor and delivery, was 131/92. Not meet criteria for gestational hypertension or preeclampsia at this time as not been 4 hours since blood pressures have been taken. However due to patient being 39 weeks gestation, and the risk of severe preeclampsia or eclampsia, will move towards delivery Admit, routine labs, PIH labs, epidural if patient request Cytotec 25 mcg sublingual every 4 hours Oxytocin later for augmentation, and plan to AROM Anticipate spontaneous vaginal delivery (2) Elevated BP without diagnosis of hypertension: Plan: PIH labs pending History of Present Illness Chief Complaint: Elevated BP in clinic Primary Care Provider: Michelle Tyson MD Patient is a 32-year-old -0-1-3 at 39 weeks and 1 dated dated by 12 week US ([place]-outside scanned records) who was seen in clinic today for elevated blood pressures and 2+ protein. She presents to labor and delivery denying headache, blurry vision, right upper quadrant or epigastric pain. Otherwise feeling well. Denies contractions, leaking of fluid or vaginal bleeding. Notes good movement. Initiate care at [facility] practice in [place] and then transfer care at 29 weeks. [place] by 12-week ultrasound is March 30, 2022. is complicated by maternal congenital heart anomaly. Per MFM:"Echo 2006-trivial aortic regurgitation, no MVP Echo 2009-trace aortic regurg due to trileaflet aortic valve; trace physiologic MR Saw cardiology 02/2020: The echocardiogram was normal, with normal left and right ventricular chamber size and systolic function LVEF 65 to 69%. There is no significant valvular heart disease. Specifically there is no significant mitral valve regurgitation. The aortic valve anatomy was normal with no aortic valve stenosis or regurgitation. I counseled the patient that I do not think she has any structural heart disease that would affect her or her health overall. She can return to see cardiology on an as-needed basis in the future should future concerns arise." History of preeclampsia in her previous , received magnesium sulfate and discharged on labetalol. He also had an elevated 1 hour glucose tolerance test, but did not complete 3-hour oral glucose tolerance testing. She has a history of medical marijuana use in , last time used approximately 4 to 5 months ago to help with nausea. Denies other drug use. History of moderate persistent asthma, inhaler as needed. History of depression previously on Zoloft 50 mg Allergies Allergy/AdvReac Type Severity Reaction Status Date / Time bee venom protein (honey bee) Allergy Unknown unknown Verified 03/24/22 13:10 butalbital [From Fioricet] Allergy Hives Verified 03/24/22 13:10 metronidazole AdvReac Severe VOMITTING Verified 03/24/22 13:10 tramadol AdvReac Intermediate VOMITTING Verified 03/24/22 13:10 Home Medications Medication Instructions Recorded Confirmed Type Albuterol Sulfate (Proair 2 puff PO Q4 PRN SOB/Wheezing ##0 12/14/16 03/24/22 History Respiclick) Pantoprazole (Protonix) 20 mg PO DAILY #30 tabs 12/14/16 History ONDANSETRON HCL (ZOFRAN) 4 mg PO Q6 PRN Nausea #0 tabs 07/08/17 03/24/22 History fluticasone propionate 50 2 spray intranasal DAILY PRN 05/06/18 03/24/22 History mcg/actuation nasal Allergic Reaction spray,suspension (Flonase Allergy Relief) aspirin 81 mg chewable tablet 81 mg PO DAILY 06/17/20 06/17/20 History prenat.vits,millie,udn-glbc-pbjmy 1 tab PO DAILY 06/17/20 03/24/22 History famotidine 20 mg tablet (Pepcid) 20 mg PO DAILY 03/24/22 03/24/22 History Patient History Medical History (Updated 03/24/22 @ 13:33 by Anju Pemberton MD, PhD) ADHD Anxiety and depression no meds Asthma inhalers used as needed Congenital heart anomaly mitral valve regurgitation Depression GERD (gastroesophageal reflux disease) History of Clostridium difficile colitis History of Clostridium difficile infection 2016 Influenza A dx 02/2022 Medical marijuana use PTSD- childhood trauma; last used approx 5-6 months Migraine no meds used in over approx 1 year PTSD (post-traumatic stress disorder) childhood trauma Surgical History H/O wisdom tooth extraction History of cholecystectomy History of esophagogastroduodenoscopy (EGD) History of laparoscopic cholecystectomy History of tonsillectomy and adenoidectomy History of tonsillectomy and adenoidectomy Family History Mother Anxiety Depression Other Breast cancer Denies family history of Colon cancer Ovarian cancer Prostate cancer Myocardial infarction Social History Smoking Status: Former smoker Tobacco Type: E-cigarettes / Vaping Second Hand Exposure: No; Hx Alcohol Use: No Hx Substance Use: Yes Prescribed Medications: Marijuana Prescribed Medications Comment: medical marijuana card Last Used Substance Other:: August 2021 Substance Use Type Other:: medical marijuana card Preferred Language: Mohawk Communication Ability: Effective Visual Impairment: No Limitations Hearing Ability: Normal Beliefs That Will Affect Care: None marital status: marital status details: Mick Fitzgerald Current Living Situation: Family Current Living Situation Comment: and 2 children current occupational status: unemployed current occupation: [employer] Feels Safe at Home: Yes Safety Concerns: Feels Safe At This Time Dental Care, Regularly: Yes Physical Activity Frequency: 3-4 Times per Week Assistive Devices: None OB History x3 History of retained products of conception after last vaginal delivery, underwent suction dilation and curettage under ultrasound guidance RN INTAKE History See records Review of Systems All systems reviewed & are unremarkable except as noted in HPI & below Physical Exam Constitutional: WD/WN, vitals as above Respiratory: normal respiratory effort, lungs clear to auscultation Cardiovascular: RRR, no murmur, no edema Gastrointestinal (Abdomen): normal bowel sounds, soft, nontender, no hepatosplenomegaly Genitourinary: FHT: Baseline 1 25-1 30, moderate variability, no accelerations, no decelerations, category 1 tracing Tocometer: Irritability Cervix: 1-2/20/-3, cephalic Chucky's 3600 g Results & Data ([facility]) Vital Signs (Past 12 Hours) Vital Signs Pulse BP 03/24/22 12:50 101 H 131/92
[2022-03-24 13:44] LABS: Hematocrit (blood only) 35.3 % (34.1-44.9); Hemoglobin 11.9 g/dl (12.0-16.0); Mean Corpuscular Hemoglobin 26.4 pg (25.0-34.0); Mean Corpuscular Hgb Conc 33.7 g/dL (32.0-36.0); Mean Corpuscular Volume 78.3 fL (80.0-100.0); Mean Platelet Volume 10.2 fL (9.4-12.3); Platelet Count 206 K/uL (130-400); RDW Coefficient of Variation 14.6 % (11.5-14.5); RDW Standard Deviation 41.2 fL (36.4-46.3); Red Blood Count 4.51 M/uL (3.93-5.22); White Blood Count 11.84 K/ul (4.8-10.8)
[2022-03-24 14:04] LABS: Alanine Aminotransferase 6 U/L (7-52); Albumin Globulin Ratio 1.3 (0.9-2); Albumin Level 3.6 gm/dl (3.4-5.0); Alkaline Phosphatase 125 U/L (34-104); Anion Gap 8 (3-11); Aspartate Aminotransferase 13 U/L (13-39); BUN Creatinine Ratio 12.2 (10-20); Bilirubin Direct 0.1 mg/dl (0-0.2); Bilirubin,Total 0.7 mg/dl (0.2-1.0); Blood Urea Nitrogen 5 mg/dl (6-23); Calcium 8.3 mg/dl (8.5-10.1); Carbon Dioxide 22 mmol/L (21-32); Chloride 106 mmol/L (98-107); Creatinine Clr Calc Pharmacy 194.6 ml/min; Est GFR (African American) > 150.0 ml/min; Est GFR (Non-African American) 138.6 ml/min; Globulin 2.7 gm/dl (2.5-4.0); Glucose 77 mg/dl (70-99(Fasting)); Potassium 3.8 mmol/L (3.5-5.1); Sodium 136 mmol/L (136-145); Total Protein 6.3 gm/dl (6.0-8.3)
[2022-03-24 14:23] LABS: Creatinine Urine Random 35.9 mg/dl; Protein Creatinine Ratio Urine 0.3 (0-0.2); Total Protein Urine Random 9.6 mg/dl (0-11.9)
[2022-03-24 14:58] LABS: Amphetamines+Metham, Urine Neg (Neg); Barbiturates, Urine Neg (Neg); Benzodiazepine, Urine Neg (Neg); Cocaine, Urine Neg (Neg); MDMA (Ecstacy), Urine Neg (Neg); Methadone, Urine Neg (Neg); Opiate, Urine Neg (Neg); Phencyclidine, Urine Neg (Neg)
[2022-03-24] MEDS: miSOPROStoL 25 MCG TAB SL SCH ×2 (15:19→20:21)
--- NOTE | 2022-03-24 19:31 | Labor Progress Brief Note ---
Date of Service March 24, 2022 Subjective Doing well, contractions more painful. Assessment & Plan (1) Pre-eclampsia affecting , antepartum: Plan: Meets criteria from elevated blood pressures at least 4 hours apart with protein creatinine ratio of 0.3 Received 1 dose of Cytotec 25 mcg sublingual, lee too much to give another dose at this time Epidural if patient request, start oxytocin for augmentation later if necessary, plan to AROM at next check Anticipate spontaneous vaginal delivery (2) 39 weeks gestation of : (3) Elevated BP without diagnosis of hypertension: Plan: PIH labs pending Admission and Anticipated Discharge Date Admission Date: March 24, 2022 Physical Exam Constitutional: WD/WN, vitals as above Respiratory: normal respiratory effort, lungs clear to auscultation Cardiovascular: RRR, no murmur, no edema Gastrointestinal (Abdomen): normal bowel sounds, soft, nontender, no hepatosplenomegaly Genitourinary: heart tracing: Baseline 135, moderate variability, positive accelerations no decelerations, category 1 tracing Tocometer contractions every 2 minutes Cervix: 3/50/-2 AROM was attempted but was unable to complete at this time Results & Data ([facility]) Vital Signs (Past 12 Hours) Vital Signs Temp Pulse Resp BP 03/24/22 15:18 37.1 C 18 03/24/22 13:34 37.2 C 18 03/24/22 19:07 18 03/24/22 19:07 37.2 C 18 03/24/22 19:08 104 H 131/90 03/24/22 17:43 101 H 20 135/86 03/24/22 15:17 99 H 121/79 03/24/22 13:15 88 144/93 H 03/24/22 12:50 101 H 131/92
[2022-03-24] MEDS: LACTATED RINGER'S 1,000 ML IV PRN (22:06)
[2022-03-25] MEDS: miSOPROStoL 25 MCG TAB SL SCH ×2 (02:22→05:31)
[2022-03-25] MEDS ORDERED: ONDANSETRON INJ 2 MG/ML 2 ML VIAL IV PRN ×2 (02:25→03:09)
[2022-03-25] MEDS ORDERED: ePHEDrine sulfate 50 MG/ML AMP ONE (02:48)
[2022-03-25] MEDS ORDERED: SODIUM CHLORIDE 0.9% INJ 10 ML VIAL ONE (02:49)
[2022-03-25] MEDS ORDERED: fentaNYL citrate 100 MCG/2 ML VIAL ONE (02:49)
[2022-03-25] MEDS ORDERED: BUPIVACAINE 0.25% 30 ML VIAL ONE (02:49)
[2022-03-25] MEDS ORDERED: fentaNYL 2MCG/ML ROPIVACAINE 1.25MG/ML 100 ML BAG EPI ONE (02:49)
[2022-03-25] MEDS ORDERED: LIDOCAINE 2%/EPINEPHRINE 1:200,000 20 ML SDV ONE (02:49)
--- NOTE | 2022-03-25 03:08 | Anesthesiology Consultation ---
Date of Service March 25, 2022 Assessment & Plan ASA ASA3 Proposed Anesthesia Anesthesia Type: Labor Epidural Risk / Benefits Reviewed With: PT / POA / Parent / Guardian, Accepts Plan and Informed Consent Obtained History Height/Weight Height: 5 ft 2 in Weight: 78.471 kg Allergies Allergy/AdvReac Type Severity Reaction Status Date / Time bee venom protein (honey bee) Allergy Unknown unknown Verified 03/24/22 13:10 butalbital [From Fioricet] Allergy Hives Verified 03/24/22 13:10 metronidazole AdvReac Severe VOMITTING Verified 03/24/22 13:10 tramadol AdvReac Intermediate VOMITTING Verified 03/24/22 13:10 Medications Home Medications Medication Instructions Recorded Confirmed Last Taken Albuterol Sulfate (Proair 2 puff PO Q4 PRN SOB/Wheezing ##0 12/14/16 03/24/22 Unknown Respiclick) Pantoprazole (Protonix) 20 mg PO DAILY #30 tabs 12/14/16 Unknown ONDANSETRON HCL (ZOFRAN) 4 mg PO Q6 PRN Nausea #0 tabs 07/08/17 03/24/22 03/24/22 08:00 fluticasone propionate 50 2 spray intranasal DAILY PRN 05/06/18 03/24/22 Unknown mcg/actuation nasal Allergic Reaction spray,suspension (Flonase Allergy Relief) aspirin 81 mg chewable tablet 81 mg PO DAILY 06/17/20 06/17/20 03/24/22 08:30 prenat.vits,millie,xrq-smit-rakup 1 tab PO DAILY 06/17/20 03/24/22 03/24/22 08:00 famotidine 20 mg tablet (Pepcid) 20 mg PO DAILY 03/24/22 03/24/22 03/23/22 21:00 Active Medications Generic Name Dose Route Start Last Admin Trade Name Freq PRN Reason Stop Dose Admin Lactated Ringer's 1,000 mls @ 125 mls/hr 03/24/22 13:07 03/25/22 02:46 Lr IV 03/26/22 13:06 999 mls/hr .Q8H PRN Infusion L&D Protocol Protocol Oxytocin 30 units in 500 mls @ 2 mls/hr 03/24/22 21:27 03/24/22 22:52 Pitocin IV 03/26/22 21:26 0.12 units/hr .Q24H PRN 2 mls/hr Labor Induction/Augmentation Administration Protocol 0.12 UNITS/HR Misoprostol 25 mcg 03/24/22 13:30 03/25/22 02:22 Misoprostol 25 Mcg Tab SL 04/23/22 13:29 Not Given Q4 CRISTAL Ondansetron HCl 4 mg 03/25/22 02:25 03/25/22 02:38 Ondansetron Inj 2 Mg/Ml 2 Ml Vial IV 04/24/22 02:24 4 mg Q4H PRN Administration Nausea Past Medical History Medical History Abdominal pain Abdominal pain Abdominal pain Acid reflux ADHD Anxiety Anxiety and depression no meds Asthma inhalers used as needed Congenital heart anomaly mitral valve regurgitation Depression Elevated BP without diagnosis of hypertension Encounter for pre-operative examination Encounter for pre-operative examination GERD (gastroesophageal reflux disease) History of Clostridium difficile colitis History of Clostridium difficile infection 2015 Influenza A dx 02/2022 Low back pain Medical marijuana use PTSD- childhood trauma; last used approx 5-6 months Migraine no meds used in over approx 1 year Nausea and vomiting Normal course Pre-eclampsia in third trimester PTSD (post-traumatic stress disorder) childhood trauma Vaginal bleeding Exercise / Class Metabolic Activity II 4-5 Yardwork/Stairs/Walk up hill Past Family History Family History Mother Anxiety Depression Other Breast cancer Denies family history of Colon cancer Ovarian cancer Prostate cancer Myocardial infarction Past Surgical History Surgical History H/O wisdom tooth extraction History of cholecystectomy History of esophagogastroduodenoscopy (EGD) History of laparoscopic cholecystectomy History of tonsillectomy and adenoidectomy History of tonsillectomy and adenoidectomy Post-operative state Past Anesthesia History No Hx of Anesthesia Complications and No Family Hx of Anesthesia Complications History of PONV No Hx of PONV and No Hx of Motion Sickness Social History Smoking Status: Current every day smoker tobacco type: e-cigarettes Hx Alcohol Use: No Hx Substance Use: Yes substance use type: marijuana Substance Use Type Other:: Medical marijuana Last Used Substance Other:: August 2021 Review of Systems denies fever/cough/ colds/ chest pain/ SOB/ JOSE denies JOSE Physical Exam Vital Signs Last Vital Signs Temp 36.7 C 03/24/22 22:56 Pulse 86 03/25/22 02:12 Resp 18 03/24/22 22:56 BP 134/91 03/25/22 02:12 ENMT Mouth: no TMJ abnormality and no dentition abnormality Thyromental Distance: > or= 3.5 Finger Breadths Mallampati Class: II Neck neck extension not limited Respiratory normal respiratory effort; no respiratory distress Auscultation: lungs clear to auscultation bilaterally Cardiovascular Rate/Rhythm: regular rate and regular rhythm Neurologic moves all extremities Psychiatric Orientation: alert and oriented x 3 Testing Laboratory Results 03/24/22 13:18 03/24/22 13:18 Blood Type O Positive 03/24/22 13:18 Antibody Screen NEGATIVE 03/24/22 13:18
[2022-03-25] MEDS ORDERED: ePHEDrine sulfate 50 MG/ML AMP IV PRN (03:09)
[2022-03-25] MEDS ORDERED: fentaNYL 2MCG/ML ROPIVACAINE 1.25MG/ML 100 ML BAG EPI PRN (03:09)
[2022-03-25] MEDS ORDERED: NALOXONE HCL 1 MG in SODIUM CHLORIDE 0.9% 1000ML 1,000 ML IV PRN (03:09)
[2022-03-25] MEDS ORDERED: diphenhydrAMINE 50 MG/ML VIAL IV PRN (03:09)
[2022-03-25] MEDS ORDERED: NALBUPHINE HCL INJ 10 MG/ML AMP IV PRN (03:09)
[2022-03-25] MEDS ORDERED: NALOXONE HCL 0.4 MG/1 ML VIAL/CARP IV PRN (03:09)
[2022-03-25] MEDS: LACTATED RINGER'S 1,000 ML IV PRN ×2 (03:15→07:02)
--- NOTE | 2022-03-25 04:33 | Labor Progress Brief Note ---
Date of Service March 25, 2022 Subjective Patient comfortable on epidural, no complaints at this time Assessment & Plan (1) Pre-eclampsia affecting , antepartum: Plan: Meets criteria from elevated blood pressures at least 4 hours apart with protein creatinine ratio of 0.3 Received 1 dose of Cytotec 25 mcg sublingual, and currently on pit. Continue pit for augmentation Anticipate spontaneous vaginal delivery (2) 39 weeks gestation of : (3) Elevated BP without diagnosis of hypertension: Admission and Anticipated Discharge Date Admission Date: March 24, 2022 Physical Exam Constitutional: WD/WN, vitals as above Respiratory: normal respiratory effort, lungs clear to auscultation Cardiovascular: RRR, no murmur, no edema Gastrointestinal (Abdomen): normal bowel sounds, soft, nontender, no hepatosplenomegaly Genitourinary: FHT: baseline 125, mod variability, +accels, variable decelerations Tocometer: Contractions every 2 minutes, currently running Cervix: 4-5/50/-2 AROM performed with clear blood-tinged fluid, no cord felt, IUPC placed without difficulty. No complications Results & Data ([facility]) Vital Signs (Past 12 Hours) Vital Signs Temp Pulse Resp BP Pulse Ox 03/25/22 04:30 93 H 98 03/25/22 04:26 88 135/87 03/25/22 04:25 84 98 03/25/22 04:20 89 96 03/25/22 04:19 107 H 94 03/25/22 04:15 87 95 03/25/22 04:12 76 93 03/25/22 04:11 96 H 118/79 03/25/22 04:10 88 96 03/25/22 04:05 76 95 03/25/22 04:04 79 93 03/25/22 04:00 81 97 03/25/22 03:55 86 96 03/25/22 03:54 77 126/80 03/25/22 03:51 86 133/84 03/25/22 03:50 83 97 03/25/22 03:48 87 133/85 03/25/22 03:45 90 144/90 H 97 03/25/22 03:42 86 141/91 H 03/25/22 03:40 88 96 03/25/22 03:39 86 146/97 H 03/25/22 03:36 87 144/98 H 03/25/22 03:35 36.7 C 90 18 97 03/25/22 03:33 83 151/97 H 03/25/22 03:30 87 159/106 H 99 03/25/22 03:25 95 H 99 03/25/22 03:20 103 H 99 03/25/22 03:15 108 H 100 03/25/22 03:10 91 H 98 03/25/22 02:12 86 134/91 03/25/22 01:11 88 129/92 03/25/22 00:10 93 H 121/89 03/24/22 23:06 88 128/80 03/24/22 23:02 85 141/103 H 03/24/22 22:56 36.7 C 87 18 137/98 03/24/22 21:00 18 03/24/22 21:00 18 03/24/22 19:07 18 03/24/22 19:07 37.2 C 18 03/24/22 19:08 104 H 131/90 03/24/22 17:43 101 H 20 135/86
--- NOTE | 2022-03-25 08:11 | Labor Progress Brief Note ---
Date of Service March 25, 2022 Assessment & Plan Admission and Anticipated Discharge Date Admission Date: March 24, 2022 Physical Exam Genitourinary: Manual OB Exam: + cervical dilation 8 cm, + cervical effacement 100% and + station 0 OB Exam Monitor Tracing: + external FHT monitor used, + external uterine monitor used, + category I and + normal FHT variability Results & Data ([facility]) Vital Signs (Past 12 Hours) Vital Signs Temp Pulse Resp BP Pulse Ox Pulse Ox O2 Del Method 03/25/22 03:09 98 Room Air 03/25/22 08:05 102 H 97 03/25/22 08:00 93 H 98 03/25/22 07:56 78 133/86 03/25/22 07:55 86 98 03/25/22 07:50 94 H 97 03/25/22 07:45 96 H 98 03/25/22 07:40 78 123/75 97 03/25/22 07:35 74 95 03/25/22 07:30 83 95 03/25/22 07:25 79 114/70 96 03/25/22 07:20 80 96 03/25/22 07:15 84 95 03/25/22 07:10 89 120/71 96 03/25/22 07:05 37.1 C 84 18 97 03/25/22 07:00 90 96 03/25/22 06:55 88 120/71 97 03/25/22 06:50 100 H 97 03/25/22 06:45 89 98 03/25/22 06:41 79 118/73 03/25/22 06:40 81 95 03/25/22 06:35 84 94 03/25/22 06:30 79 95 03/25/22 06:25 92 H 94 03/25/22 06:26 83 121/66 03/25/22 06:20 100 H 96 03/25/22 06:15 101 H 97 03/25/22 06:10 92 H 127/76 94 03/25/22 06:05 79 93 03/25/22 06:00 83 94 03/25/22 05:55 95 03/25/22 05:55 90 03/25/22 05:55 88 127/78 03/25/22 05:50 86 94 03/25/22 05:45 84 94 03/25/22 05:40 83 135/78 95 03/25/22 05:35 78 95 03/25/22 05:30 77 93 03/25/22 05:25 95 03/25/22 05:25 81 03/25/22 05:25 78 120/76 03/25/22 05:20 78 94 03/25/22 05:15 78 95 03/25/22 05:14 76 93 03/25/22 05:12 75 119/77 03/25/22 05:10 82 95 03/25/22 05:08 76 93 03/25/22 05:05 91 H 97 03/25/22 05:03 77 94 03/25/22 05:00 79 95 03/25/22 04:56 74 93 03/25/22 04:55 87 101/66 95 03/25/22 04:50 76 93 03/25/22 04:51 75 94 03/25/22 04:45 82 95 03/25/22 04:46 75 94 03/25/22 04:40 95 03/25/22 04:40 71 03/25/22 04:40 74 120/75 94 03/25/22 04:35 77 96 03/25/22 04:33 86 94 03/25/22 04:30 93 H 98 03/25/22 04:26 88 135/87 03/25/22 04:25 84 98 03/25/22 04:20 89 96 03/25/22 04:19 107 H 94 03/25/22 04:15 87 95 03/25/22 04:12 76 93 03/25/22 04:11 96 H 118/79 03/25/22 04:10 88 96 03/25/22 04:05 76 95 03/25/22 04:04 79 93 03/25/22 04:00 81 97 03/25/22 03:55 86 96 03/25/22 03:54 77 126/80 03/25/22 03:51 86 133/84 03/25/22 03:50 83 97 03/25/22 03:48 87 133/85 03/25/22 03:45 90 144/90 H 97 03/25/22 03:42 86 141/91 H 03/25/22 03:40 88 96 03/25/22 03:39 86 146/97 H 03/25/22 03:36 87 144/98 H 03/25/22 03:35 36.7 C 90 18 97 03/25/22 03:33 83 151/97 H 03/25/22 03:30 87 159/106 H 99 03/25/22 03:25 95 H 99 03/25/22 03:20 103 H 99 03/25/22 03:15 108 H 100 03/25/22 03:10 91 H 98 03/25/22 02:12 86 134/91 03/25/22 01:11 88 129/92 03/25/22 00:10 93 H 121/89 03/24/22 23:06 88 128/80 03/24/22 23:02 85 141/103 H 03/24/22 22:56 36.7 C 87 18 137/98 03/24/22 21:00 18 03/24/22 21:00 18
--- NOTE | 2022-03-25 08:53 | Delivery Summary ---
Vaginal Delivery Summary Date of Service March 25, 2022 Vaginal Delivery Summary Delivery note live male NIKKI over intact perineum with delayed cord clamping and Apgars 9/9 weight pending. Cord blood obtained followed by spontaneous delivery of intact placenta. No tears. EBL 100 ml. Final sponge and imstrument count are correct. Mom and baby stable.
[2022-03-25] MEDS ORDERED: FLUTICASONE PROPIONATE NA SPR 16 GM BTL PRN (09:02)
[2022-03-25] MEDS ORDERED: ACETAMINOPHEN 325 MG TAB PO PRN (09:02)
[2022-03-25] MEDS ORDERED: ALBUTEROL HFA 8 GM INHALER INH PRN (09:11)
--- NOTE | 2022-03-25 09:33 | Anesthesia Procedure Note ---
Date of Service March 25, 2022 Anesthesia Post Epidural Note Vital Signs Vital Signs: Temp Pulse Resp BP Pulse Ox O2 Del Method 37.1 C 78 18 152/93 H 97 03/25/22 07:05 03/25/22 09:19 03/25/22 08:30 03/25/22 09:19 03/25/22 08:55 03/25/22 03:09 Notes Mental Status: alert / awake / arousable and participated in evaluation Nausea / Vomiting: adequately controlled Pain: adequately controlled Airway Patency, RR, SpO2: stable & adequate BP & HR: stable & adequate Hydration State: stable & adequate Neuraxial Anesthesia: sensory block resolved Anesthetic Complications: no major complications apparent Epidural: Removed without complications and With tip intact
[2022-03-25 10:42] LABS: Anion Gap 8 (3-11); Blood Urea Nitrogen 6 mg/dl (6-23); Carbon Dioxide 22 mmol/L (21-32); Chloride 105 mmol/L (98-107); Est GFR (African American) > 150.0 ml/min; Potassium 3.7 mmol/L (3.5-5.1); Sodium 135 mmol/L (136-145)
[2022-03-25 10:43] LABS: Alanine Aminotransferase 6 U/L (7-52); Albumin Globulin Ratio 1.3 (0.9-2); Albumin Level 3.2 gm/dl (3.4-5.0); Alkaline Phosphatase 113 U/L (34-104); Aspartate Aminotransferase 13 U/L (13-39); BUN Creatinine Ratio 14.6 (10-20); Bilirubin Direct 0.2 mg/dl (0-0.2); Calcium 7.8 mg/dl (8.5-10.1); Creatinine Clr Calc Pharmacy 194.6 ml/min; Est GFR (Non-African American) 138.6 ml/min; Globulin 2.4 gm/dl (2.5-4.0); Glucose 82 mg/dl (70-99(Fasting)); Total Protein 5.6 gm/dl (6.0-8.3); Uric Acid 4.6 mg/dl (2.6-7.2)
[2022-03-25] MEDS: ONDANSETRON INJ 2 MG/ML 2 ML VIAL IV PRN ×2 (10:48→18:37)
[2022-03-25] MEDS: FAMOTIDINE 20 MG TAB PO SCH (10:59)
[2022-03-25] MEDS: PRENATAL VITAMIN 1 TAB PO SCH (11:00)
[2022-03-25 11:32] LABS: Creatinine Urine Random 38.4 mg/dl; Protein Creatinine Ratio Urine 0.3 (0-0.2); Total Protein Urine Random 11.2 mg/dl (0-11.9)
[2022-03-25] MEDS ORDERED: LABETALOL HCL 100 MG TAB PO ONE (11:39)
[2022-03-25] MEDS: IBUPROFEN 600 MG TAB PO PRN ×2 (13:09→23:04)
[2022-03-25] MEDS ORDERED: BENZOCAINE 20% AER SPR 82.5 GM CAN EXT PRN (13:36)
[2022-03-25] MEDS ORDERED: DOCUSATE SODIUM 100 MG CAP PO ONE (19:48)
[2022-03-25] MEDS: DOCUSATE SODIUM 100 MG CAP PO SCH (19:57)
[2022-03-26] MEDS: IBUPROFEN 600 MG TAB PO PRN (03:41)
[2022-03-26] MEDS ORDERED: FERROUS SULFATE 325 MG TAB PO SCH (08:00)
[2022-03-26] MEDS: DOCUSATE SODIUM 100 MG CAP PO SCH (08:17)
[2022-03-26] MEDS: PRENATAL VITAMIN 1 TAB PO SCH (08:17)
[2022-03-26] MEDS: FAMOTIDINE 20 MG TAB PO SCH (08:17)
[2022-03-26] MEDS ORDERED: LABETALOL HCL 100 MG TAB PO SCH (09:00)
== END 2022-03-26 14:40 | disposition home or self-care (01) | DRG 806 ==
LOC: OPB 12:25 → 4S1 12:27 → 4E2 03-25 12:45